=== PATIENT | male | born 1970 | race Two or more races ===

== ENCOUNTER 2018-03-08 21:00 | Emergency (ER) | payer OTHER ==
[~2018-03-08] VITALS: Ht 167.6 cm; Wt 111.0 kg
[2018-03-08] MEDS ORDERED: SODIUM CHLORIDE 0.9% 1,000 ML IV ONE (23:32)
[2018-03-08] MEDS ORDERED: ACETAMINOPHEN 325MG TABLET PO STA (23:32)
[2018-03-08] MEDS ORDERED: ASPIRIN 81MG TABLET PO ONE (23:45)
[2018-03-09 00:02] LABS: BASOPHILS % 0.4 % (0.0-2.0); EOSINOPHILS % 0.2 % (0.0-5.0); HEMATOCRIT. 37.7 % (42.0-52.0); HEMOGLOBIN. 12.9 g/dL (14.0-18.0); LYMPHOCYTES % 7.3 % (20.0-50.0); MEAN CORPUSCULAR HEMOGLOBIN 26.2 pg (28.0-32.0); MEAN CORPUSCULAR VOLUME 76.7 fL (80.0-94.0); MEAN PLATELET VOLUME 8.3 fl (7.4-10.4); MONOCYTES % 3.9 % (2.0-8.0); NEUTROPHILS % 88.2 % (40.0-76.0); PLATELET 166 x1000/uL (130-400); RED BLOOD CELL COUNT 4.92 mill/uL (4.7-6.1); RED CELL DISTRIBUTION WIDTH 13.8 % (11.6-14.6)
[2018-03-09 00:06] LABS: CHLORIDE 105 mEq/L (98-107)
[2018-03-09 00:11] LABS: PARTIAL THROMBOPLASTIN TIME 26.5 sec (23.4-31.0); PROTHROMBIN TIME 10.7 sec (9.4-11.6)
[2018-03-09 00:35] LABS: CLARITY URINE CLEAR (CLEAR); COLOR URINE YELLOW (YELLOW); KETONES URINE NEGATIVE (NEGATIVE); LEUKOCYTE ESTERASE URINE NEGATIVE (NEGATIVE); NITRITE URINE NEGATIVE (NEGATIVE); OCCULT BLOOD URINE NEGATIVE (NEGATIVE); PH URINE 5.5 (4.5-8.0); PROTEIN URINE NEGATIVE (NEGATIVE); SPECIFIC GRAVITY URINE 1.013 (1.005-1.030); UROBILINOGEN URINE 0.2 E.U./dL (0.2-1.0)
[2018-03-09 03:39] VITALS: BP 110/69
== END 2018-03-09 03:44 | disposition home or self-care (01) ==
LOC: ER 21:00 → CANBEDREQ 03-09 06:28
DX: R50.9 Fever, unspecified (principal); R07.89 Other chest pain; F41.9 Anxiety disorder, unspecified; M54.9 Dorsalgia, unspecified; E78.00 Pure hypercholesterolemia, unspecified
CPT/HCPCS: 36415; 71045; 80053; 81003; 83880; 84484; 85025; 85610; 85730; 93005; 99285; J7030; Z7610

== ENCOUNTER 2024-10-01 18:34 | Emergency (ER) | payer OTHER ==
[~2024-10-01] VITALS: Ht 175.3 cm; Wt 112.0 kg
[2024-10-01 18:36] VITALS: O2SAT 98
[2024-10-01 19:39] VITALS: BP 138/73; PULSE 81; RESP 15; TEMP 37.2; O2SAT 98
[2024-10-01] MEDS: ACETAMINOPHEN 650MG/20.3ML UDC PO ONE (23:30)
== END 2024-10-02 02:54 | disposition home or self-care (01) ==
LOC: ER 18:34
DX: S09.90XA Unspecified injury of head, initial encounter (principal); Z98.890 Other specified postprocedural states; X58.XXXA Exposure to other specified factors, initial encounter; Y93.89 Activity, other specified; Y92.89 Other specified places as the place of occurrence of the external cause; Y99.8 Other external cause status
CPT/HCPCS: 99284